=== PATIENT | female | born 1985 | race Caucasian/White ===

== ENCOUNTER 2017-07-19 23:43 | Emergency (ER) | payer MEDICAID ==
[2017-07-20] MEDS: KETOROLAC 30 MG INJ IM (02:52)
== END 2017-07-20 02:54 | disposition home or self-care (01) ==
LOC: FTE 23:43
DX: S19.9XXA Unspecified injury of neck, initial encounter (principal); S09.93XA Unspecified injury of face, initial encounter; J45.909 Unspecified asthma, uncomplicated; R51 Headache; Y04.8XXA Assault by other bodily force, initial encounter; Y92.9 Unspecified place or not applicable
CPT/HCPCS: 70450; 70486; 72125; 81025; 96372; 99285-25

== ENCOUNTER 2018-02-03 19:37 | Emergency (ER) | payer SELFPAY, MEDICAID ==
[2018-02-03] MEDS: FAMOTIDINE 20 MG TAB PO (21:15)
[2018-02-03] MEDS: DEXAMETHASONE 10 MG/ML 1 ML INJ IM (21:33)
== END 2018-02-03 21:58 | disposition home or self-care (01) ==
LOC: FTE 19:37
DX: R21 Rash and other nonspecific skin eruption (principal); J45.909 Unspecified asthma, uncomplicated
CPT/HCPCS: 96372; 99284-25

== ENCOUNTER 2018-09-23 19:00 | Emergency (ER) | payer MEDICAID ==
[2018-09-23 20:58] LABS: URINE BLOOD (Dip) POC Negative (NEGATIVE); URINE GLUCOSE (Dip) POC Negative (NEGATIVE); URINE KETONES (Dip) POC Negative (NEGATIVE); URINE LEUKOCYTE EST (Dip) POC 1+ (NEGATIVE); URINE NITRITE (Dip) POC Negative (NEGATIVE); URINE TOTAL PROTEIN POC Negative (NEGATIVE)
[2018-09-23] MEDS: LORAZEPAM 0.5 MG TAB PO (21:05)
[2018-09-23 21:16] LABS: ADD MAN DIFF? NO
[2018-09-23 21:17] LABS: BASOPHILS % 0.5 % (0.0-2.0); EOSINOPHILS # 0.1 10^3/ul (0.0-0.5); EOSINOPHILS % 1.4 % (0.0-7.0); HEMATOCRIT 35.5 % (37.0-47.0); HEMOGLOBIN 11.2 g/dl (12.0-16.0); LYMPHOCYTES # 1.7 10^3/ul (0.8-2.9); LYMPHOCYTES % 29.4 % (15.0-51.0); MEAN CORPUSCULAR HEMOGLOBIN 27.8 pg (29.0-33.0); MEAN CORPUSCULAR HGB CONC 31.5 g/dl (32.0-37.0); MEAN CORPUSCULAR VOLUME 88.1 fl (82.0-101.0); MONOCYTE # 0.5 10^3/ul (0.3-0.9); MONOCYTES % 9.1 % (0.0-11.0); NEUTROPHIL # 3.5 10^3/ul (1.6-7.5); NEUTROPHILS % 59.4 % (39.0-77.0); PLATELET COUNT 236 10^3/UL (140-415); RED BLOOD COUNT 4.03 10^6/ul (4.20-5.40); RED CELL DISTRIBUTION WIDTH 13.2 % (11.5-14.5)
[2018-09-23 21:17] LABS: WHITE BLOOD COUNT 5.9 10^3/ul (4.8-10.8)
== END 2018-09-24 00:09 | disposition home or self-care (01) ==
LOC: FTE 09-24 00:09
DX: R07.89 Other chest pain (principal); J45.901 Unspecified asthma with (acute) exacerbation; F41.9 Anxiety disorder, unspecified; D64.9 Anemia, unspecified
CPT/HCPCS: 71046; 81003; 81025; 85025; 93005; 99285-25